=== PATIENT | male | born 1985 | race Caucasian/White ===

== ENCOUNTER 2020-04-05 15:19 | Emergency (ER) | payer OTHER ==
[~2020-04-05] VITALS: Ht 167.6 cm; Wt 75.7 kg
[2020-04-05 16:22] LABS: BILIRUBIN Negative (Negative); BLOOD Negative (Negative); CLARITY Clear (Clear); COLOR Yellow (Yellow); GLUCOSE Negative (Negative); KETONE Negative (Negative); LEUKO ESTERASE Negative (Negative); NITRITE Negative (Negative); PH 5.5 (4.5-8.0); SPECIFIC GRAVITY <= 1.005 (1.001-1.030); UROBILINOGEN 0.2 E.U./dl (0.0-1.0)
[2020-04-05 16:30] LABS: URINE AMPHETAMINES < 1000 (1000ng/ml); URINE BARBITURATES < 200 (200ng/ml); URINE BENZODIAZEPINES < 200 (200ng/ml); URINE CANNABINOIDS (THC) < 50 (50ng/ml); URINE COCAINE < 300 (300ng/ml); URINE METHADONE < 300 (300ng/ml); URINE OPIATES < 300 (300ng/ml)
[2020-04-05 16:33] LABS: ALBUMIN 3.2 gm/dl (3.1-4.5); ALKALINE PHOSPHATASE 89 U/L (45-117); BUN 9 mg/dl (7-24); CHLORIDE 111 mmol/L (98-107); CREATININE 0.79 mg/dL (0.70-1.30); SGOT/AST 19 IU/L (3-35); SGPT/ALT 25 U/L (12-78); SODIUM 141 mmol/L (136-145); TOTAL PROTEIN 6.2 gm/dL (6.4-8.2)
[2020-04-05 16:38] LABS: URINE PHENCYCLIDINE < 25 (25ng/ml); WBC 0-2 wbc/hpf (0-5)
[2020-04-05 16:38] LABS: ACETAMINOPHEN (TYLENOL) < 5.0 ug/ml (10-30)
[2020-04-05 16:39] LABS: BACTERIA TRACE
[2020-04-05 16:43] LABS: BASO # 0.1 10*3/uL (0.0-0.1); BASO % 0.5 % (0.0-1.0); EOS # 0.1 10*3/uL (0.0-0.4); EOS % 0.7 % (1.0-4.0); HEMATOCRIT 45.8 % (42.0-52.0); LYMPH % 27.2 % (27.0-41.0); MEAN CELL VOLUME 85.6 fl (80.0-94.0); MEAN CORPUSCULAR HGB 29.5 pg (27.0-31.0); MEAN CORPUSCULAR HGB CONC 34.5 g/dl (33.0-37.0); MEAN PLATELET VOLUME 9.4 fl (9.6-12.3); MONO # 0.5 10*3/uL (0.1-1.0); MONO % 4.2 % (3.0-9.0); NEUT # 7.4 10*3/uL (2.3-7.9); PLATELET COUNT AUTOMATED 325 10*3/uL (130-400); RED BLOOD COUNT 5.35 10*6/uL (4.50-5.90); WHITE BLOOD COUNT 11.1 10*3/uL (4.8-10.8)
== END 2020-04-05 23:43 | disposition designated cancer center or children's hospital (05) ==
LOC: ED 15:19
PROVIDERS: Internal Medicine
DX: T65.92XA Toxic effect of unspecified substance, intentional self-harm, initial encounter (principal); F31.9 Bipolar disorder, unspecified; F17.200 Nicotine dependence, unspecified, uncomplicated; Z20.822 Contact with and (suspected) exposure to COVID-19; Y92.89 Other specified places as the place of occurrence of the external cause